=== PATIENT | male | born 1960 | race Caucasian/White ===

== ENCOUNTER 2018-11-19 17:13 | Emergency (ER) | payer BC ==
[2018-11-19] MEDS ORDERED: Tetracaine 0.5% OPTH.SOL 4 ML* 1 DROP BTL ONE (18:06)
[2018-11-19] MEDS: Tetracaine 0.5% OPTH.SOL 4 ML* 1 DROP BTL RIGHT EYE ONE (18:07)
[2018-11-19] MEDS: Proparacaine 0.5% OPHTH.SOL* 15 ML BTL LEFT EYE ONE (18:08)
[2018-11-19] MEDS: Fluorescein Sodium TOPICAL* 1 MG TEST STRIP OPHTHALMIC ONE (18:08)
--- NOTE | 2018-11-19 18:16 | ED ---
Throat Pain/Nasal Congestion - HPI Summary HPI Summary: Patient complains of right eye pain after he got poked in the eye by metal misty. Denies vision change, STACY. Patient states he is concerned about abrasion. Denies contact lenses. Denies any other injury, pain or symptoms. Medical history is HTN, BPH, GERD. No anti-coag. - History of Current Complaint Chief Complaint: EDEyeProblem Time Seen by Provider: 11/19/18 17:51 Hx Obtained From: Patient Onset/Duration: Sudden Onset Severity: Moderate Associated Signs And Symptoms: Positive: Negative Cough: None - Allergies/Home Medications Allergies/Adverse Reactions: Allergies Allergy/AdvReac Type Severity Reaction Status Date / Time clarithromycin Allergy Intermediate Nausea And Verified 11/19/18 18:21 Vomiting azithromycin AdvReac Severe GI Upset Verified 11/19/18 18:21 erythromycin base AdvReac Severe GI Upset Verified 11/19/18 18:21 phenytoin AdvReac Severe GI Upset Verified 11/19/18 18:21 MS Ibuprofen [From Motrin] AdvReac Intermediate GI Upset Verified 11/19/18 17:47 MS Naproxen [Naproxen] AdvReac Intermediate GI Upset Verified 11/19/18 17:47 NSAIDS (Non-Steroidal AdvReac GI Upset Verified 11/19/18 18:21 Anti-Inflamma Home Medications: Home Medications Alfuzosin HCl [Uroxatral] 10 mg PO DAILY 11/19/18 [History Confirmed 11/19/18] PMH/Surg Hx/FS Hx/Imm Hx Endocrine/Hematology History: Denies: Hx Diabetes Cardiovascular History: Reports: Hx Angina, Hx Hypertension Denies: Hx Coronary Artery Disease, Hx Hypercholesterolemia, Hx Myocardial Infarction, Hx Pacemaker/ICD, Hx Valvular Heart Disease Respiratory History: Denies: Hx Asthma, Hx Chronic Obstructive Pulmonary Disease (COPD) GI History: Reports: Hx Gastroesophageal Reflux Disease, Other GI Disorders - valve eosophagus History: Reports: Hx Benign Prostatic Hyperplasia Denies: Hx Renal Disease Musculoskeletal History: Reports: Hx Arthritis Sensory History: Reports: Hx Contacts or Glasses Denies: Hx Hearing Aid Opthamlomology History: Reports: Hx Contacts or Glasses Psychiatric History: Denies: Hx Panic Disorder - Cancer History Cancer Type, Location and Year: 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 Tonsilectomy, right compound clavicle fracture Hx Anesthesia Reactions: No Infectious Disease History: No Infectious Disease History: Denies: Hx Clostridium Difficile, Hx Hepatitis, Hx Human Immunodeficiency Virus (HIV), Hx of Known/Suspected MRSA, Hx Shingles, Hx Tuberculosis, Hx Known/ Suspected VRE, Hx Known/Suspected VRSA, History Other Infectious Disease, Traveled Outside the [place] in Last 30 Days - Social History Alcohol Use: Occasionally Substance Use Type: Reports: None Smoking Status (MU): Former Smoker Type: Cigarettes Amount Used/How Often: 1 PPD Length of Time of Smoking/Using Tobacco: 25 years Have You Smoked in the Last Year: No Review of Systems Constitutional: Negative Positive: Other - right eye pain ENT: Negative Cardiovascular: Negative Respiratory: Negative Gastrointestinal: Negative Genitourinary: Negative Musculoskeletal: Negative Skin: Negative Neurological: Negative Psychological: Normal All Other Systems Reviewed And Are Negative: Yes Physical Exam - Summary Physical Exam Summary: Corneal abrasion under fluoroscope. No evidence of foreign body. EOMI. Triage Information Reviewed: Yes Vital Signs On Initial Exam: Initial Vitals Temp Pulse Resp BP Pulse Ox 98.3 F 62 16 140/77 95 11/19/18 17:43 11/19/18 17:43 11/19/18 17:43 11/19/18 17:43 11/19/18 17:43 Vital Signs Reviewed: Yes Appearance: Positive: Well-Appearing Skin: Positive: Warm Head/Face: Positive: Normal Head/Face Inspection Eyes: Positive: Normal ENT: Positive: Normal ENT inspection Neck: Positive: Supple Respiratory/Lung Sounds: Positive: Clear to Auscultation Cardiovascular: Positive: Normal Abdomen Description: Positive: Nontender Musculoskeletal: Positive: Normal Neurological: Positive: Normal Psychiatric: Positive: Normal AVPU Assessment: Alert - [place] Coma Scale Best Eye Response: 4 - Spontaneous Best Motor Response: 6 - Obeys Commands Best Verbal Response: 5 - Oriented Coma Scale Total: 15 Diagnostics - Vital Signs Vital Signs Temp Pulse Resp BP Pulse Ox 11/19/18 17:43 98.3 F 62 16 140/77 95 - Laboratory Lab Statement: Any lab studies that have been ordered have been reviewed, and results considered in the medical decision making process. EENT Course/Dx - Course Course Of Treatment: Patient complains of right eye pain after he got poked in the eye by metal misty. Denies vision change, STACY. Patient states he is concerned about abrasion. Denies contact lenses. Denies any other injury, pain or symptoms. Medical history is HTN, BPH, GERD. No anti-coag. Physical exam:Corneal abrasion under fluoroscope. No evidence of foreign body. EOMI. Signs within normal limits. Positive corneal abrasion. Patient received gentamicin ophthalmic solution 2 drops in right eye. Took bottle with him. 2 drops every 4 hours in right eye. 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 Patient understands and approves of pain. - Diagnoses Provider Diagnoses: Corneal abrasion, right Discharge - Sign-Out/Discharge Documenting (check all that apply): Patient Departure Patient Received Moderate/Deep Sedation with Procedure: No - Discharge Plan Condition: Stable Disposition: HOME Prescriptions: HYDROcodone/ACETAMIN 5-325 MG* [[place] 5-325 TAB*] 1 tab PO Q8H PRN 2 Days #6 tab MDD 3 tabs PRN Reason: Pain Patient Education Materials: Corneal Abrasion (ED) Referrals: Sarah Jimenez MD [Primary Care Provider] - Additional Instructions: 2 drops of antibiotic solution in the right eye every 4 hours. Follow-up with your eye doctor as soon as possible. Return to the ED for any new or worsening symptoms. - Billing Disposition and Condition Condition: STABLE Disposition: Home
[2018-11-19] MEDS: Gentamicin 0.3% OPHTH.SOLN* 5 ML BTL RIGHT EYE SCH (18:32)
[2018-11-19 18:37] VITALS: BP 134/86
== END 2018-11-19 18:35 | disposition home or self-care (01) ==
LOC: ED 17:13
DX: S05.01XA Injury of conjunctiva and corneal abrasion without foreign body, right eye, initial encounter (principal); W22.8XXA Striking against or struck by other objects, initial encounter; Y92.9 Unspecified place or not applicable; I10 Essential (primary) hypertension; Z87.891 Personal history of nicotine dependence
CPT/HCPCS: 99281; A9270-GY